=== PATIENT | female | born 1975 | race Caucasian/White ===

== ENCOUNTER 2022-10-26 11:42 | Outpatient (CLI) | payer BC | END 2022-10-26 11:43 | disposition home or self-care (01) | LOC: CSHMAMMO 11:42 | PROVIDERS: ATTEND Obstetrics & Gynecology | DX: Z12.31 Encounter for screening mammogram for malignant neoplasm of breast (principal); Z80.3 Family history of malignant neoplasm of breast | CPT/HCPCS: 77063; 77067 ==

== ENCOUNTER 2024-01-28 09:55 | Outpatient (CLI) | payer BC | END 2024-01-28 09:56 | disposition home or self-care (01) | LOC: CSHMAMMO 09:55 | PROVIDERS: ATTEND Obstetrics & Gynecology | DX: Z12.31 Encounter for screening mammogram for malignant neoplasm of breast (principal); Z80.3 Family history of malignant neoplasm of breast | CPT/HCPCS: 77063; 77067 ==